=== PATIENT | female | born 1965 | race Caucasian/White ===

== ENCOUNTER 2017-06-11 15:46 | Emergency (ER) | payer BC ==
--- NOTE | 2017-06-11 16:22 | ED ---
Burn - HPI Summary HPI Summary: 52-year-old male presents with burning on the right hand for the past week. She states she burnt it in on food from a crockpot. She states the area was blistered but she by accident hit her hand pain and popped the blisters. She has been using Tylenol for pain. She has been keeping it elevated and keeping it covered. She has been using Silvadene on the area. She states today the pain increased. She denies any fevers or spreading redness. She states she has a burn to her proximal phalanx of index, middle, Ring finger. She has full ROM of her fingers. She is left handed. - History of Current Complaint Chief Complaint: UCBurn Stated Complaint: WOUND ON HAND FROM BURN Time Seen by Provider: 06/11/17 16:10 Hx Last Menstrual Period: 05/01/17 Pain Intensity: 4 - Allergy/Home Medications Allergies/Adverse Reactions: Allergies Allergy/AdvReac Type Severity Reaction Status Date / Time Sulfa (Sulfonamide Allergy Intermediate Vomiting Verified 06/11/17 16:06 Antibiotics) PMH/Surg Hx/FS Hx/Imm Hx Endocrine/Hematology History: Denies: Hx Diabetes Cardiovascular History: Denies: Hx Hypertension Respiratory History: Denies: Hx Asthma Infectious Disease History: No Infectious Disease History: Denies: Traveled Outside the [place] in Last 30 Days - Family History Known Family History: Negative: Diabetes - Social History Alcohol Use: None Substance Use Type: Reports: None Smoking Status (MU): Former Smoker Review of Systems Negative: Fever Negative: Chest Pain Negative: Shortness Of Breath Positive: Other - burn right hand All Other Systems Reviewed And Are Negative: Yes Physical Exam Triage Information Reviewed: Yes Vital Signs On Initial Exam: Initial Vitals Temp Pulse Resp BP Pulse Ox 98.4 F 91 15 155/94 98 06/11/17 16:00 06/11/17 16:00 06/11/17 16:00 06/11/17 16:00 06/11/17 16:00 Vital Signs Reviewed: Yes Appearance: Positive: Well-Appearing Skin: Positive: Warm, Dry, Other - proximal phlanax burn 2nd degree of index, middle, and ring with no surrounding erythema, no dehiscence Head/Face: Positive: Normal Head/Face Inspection Eyes: Positive: Normal, Conjunctiva Clear Respiratory/Lung Sounds: Positive: Clear to Auscultation, Breath Sounds Present Cardiovascular: Positive: Normal, RRR Musculoskeletal: Positive: Edema Right - index, middle, ring finger proximal phalanx, Other - good pulses, sensation grossly intact Neurological: Positive: Normal Psychiatric: Positive: Normal Burn Calculation - [place] Formula for Fluid Resuscitation Weight: 240 lb 24 -Hour Fluid Replacement: 0.0 Diagnostics - Vital Signs Vital Signs Temp Pulse Resp BP Pulse Ox 06/11/17 16:00 98.4 F 91 15 155/94 98 - Laboratory Lab Statement: Any lab studies that have been ordered have been reviewed, and results considered in the medical decision making process. Burn Course/Dx - Course Course Of Treatment: 52-year-old male presents with burning on the right hand for the past week. She states she burnt it in on food from a crockpot. She states the area was blistered but she by accident hit her hand pain and popped the blisters. She has been using Tylenol for pain. She has been keeping it elevated and keeping it covered. She has been using Silvadene on the area. She states today the pain increased. She denies any fevers or spreading redness. She states she has a burn to her proximal phalanx of index, middle, Ring finger. She has full ROM of her fingers. She is left handed. on exam has second degree burn of proximal phlanax of 2-4 finger on dorsum that is not circumferential. full ROM. no surrounding erythema. neurovascular intact. nothing to debride. will give pain medication and silvadene to continue her care for her burn. will give referral to primary to have follow up about blood pressure as is elevated at this visit. patient understand and agrees with plan. - Diagnoses Differential Diagnoses: Positive: Direct Contact Thermal Burn, Other - cellulitis Provider Diagnosis: Burn of right hand including fingers Discharge - Discharge Plan Condition: Good Disposition: HOME Prescriptions: oxyCODONE/Acetamin 5/325 MG* [Percocet 5/325 TAB*] 1 tab PO Q6H PRN #8 tab MDD 4 PRN Reason: Pain Silver Sulfadiazine [Silvadene] 20 gm TP BID #1 cream..g. Patient Education Materials: Second Degree Burn (ED) Referrals: [facility] [Outside] Additional Instructions: Apply silvadene twice a day, keep covered Elevate Take ibuprofen every 6 hours for pain, use narcotic for break through pain Return to ED if develop fever, streaking redness, or any new or worsening symptoms
== END 2017-06-11 16:30 | disposition home or self-care (01) ==
LOC: UCEAST 15:46
DX: T23.231A Burn of second degree of multiple right fingers (nail), not including thumb, initial encounter (principal); X10.1XXA Contact with hot food, initial encounter; Y92.9 Unspecified place or not applicable; Z88.2 Allergy status to sulfonamides; Z87.891 Personal history of nicotine dependence
CPT/HCPCS: 99202; G0463

== ENCOUNTER 2018-10-15 15:43 | Emergency (ER) | payer BC, OTHER ==
[2018-10-15 16:05] VITALS: BP 145/73
--- NOTE | 2018-10-15 16:28 | UC ---
Skin Complaint HPI - HPI Summary HPI Summary: 53-year-old female who has had a feeling of the right side of her back felt like the skin was burning 2 weeks ago. A Few days ago she developed a mild rash but then today there was an increase in the rash to the right upper back. - History of Current Complaint Chief Complaint: UCSkin Time Seen by Provider: 10/15/18 16:15 Stated Complaint: SKIN IRRITATION ON BACK Hx Obtained From: Patient Hx Last Menstrual Period: 05/01/17 ?: No Onset/Duration: Gradual Onset Skin Exposure Onset/Duration: Days Ago - Patient noted a feeling of burning sensation to the skin on the right side of her back a week ago and then a rash started yesterday but worsened today. Timing: Constant Onset Severity: Mild Current Severity: Mild Pain Intensity: 4 Location: Other - Right upper back Character: Pruritus, Pain, Redness, Raised Aggravating Factor(s): Clothing Alleviating Factor(s): Nothing Associated Signs & Symptoms: Positive: Rash. Negative: Drainage - Allergy/Home Medications Allergies/Adverse Reactions: Allergies Allergy/AdvReac Type Severity Reaction Status Date / Time Sulfa (Sulfonamide Allergy Intermediate Vomiting Verified 10/15/18 16:05 Antibiotics) PMH/Surg Hx/FS Hx/Imm Hx Previously Healthy: Yes Endocrine History: Diabetes - Surgical History Surgical History: None - Family History Known Family History: Negative: Diabetes - Social History Alcohol Use: Rare Substance Use Type: None Smoking Status (MU): Former Smoker Review of Systems All Other Systems Reviewed And Are Negative: Yes Constitutional: Positive: Fatigue Skin: Positive: Rash - Rash right upper back. Is Patient Immunocompromised?: No Physical Exam Triage Information Reviewed: Yes Appearance: Well-Appearing, No Pain Distress, Well-Nourished Vital Signs: Initial Vital Signs Temp 98.5 F 10/15/18 15:59 Pulse 98 10/15/18 15:59 Resp 16 10/15/18 15:59 BP 145/73 10/15/18 15:59 Pulse Ox 97 10/15/18 15:59 Vital Signs Reviewed: Yes Skin: Positive: Rashes - Patient has a linear vesicular rash to the right upper/ mid back with no drainage at this point in time minimal erythema present. Course/Dx - Course Course Of Treatment: Patient is comfortable here. I believe this is shingles and because she had an outbreak of the rash yesterday and then again today I am going to treat her with valacyclovir 1000 mg by mouth 3 times a day 7 days. He is follow-up with the primary care provider if no improvement or 4 days. - Diagnoses Provider Diagnosis: Shingles Discharge - Sign-Out/Discharge Documenting (check all that apply): Patient Departure All imaging exams completed and their final reports reviewed: No Studies - Discharge Plan Condition: Fair Disposition: HOME Prescriptions: ValACYclovir (*) [Valtrex 1 GM(*)] 1 gm PO TID 7 Days #21 tab Patient Education Materials: Shingles (ED) Referrals: Hanna Fernando MD [Primary Care Provider] - Additional Instructions: Avoid scratching the area, do not have any possible drainage exposed to someone who has not had chickenpox. Follow-up with your primary care provider regarding your questions about the shingles vaccination. - Billing Disposition and Condition Condition: FAIR Disposition: Home - Attestation Statements Provider Attestation: Per institutional requirements, I have reviewed the chart, however, I was not consulted specifically or made aware of this patient by the midlevel provider. I did not personally evaluate, interact with , or disposition this patient.
== END 2018-10-15 16:30 | disposition home or self-care (01) ==
LOC: UCEAST 15:43
DX: B02.9 Zoster without complications (principal); E11.9 Type 2 diabetes mellitus without complications; Z87.891 Personal history of nicotine dependence; Z88.2 Allergy status to sulfonamides
CPT/HCPCS: 99212; G0463